=== PATIENT | female | born 1950 | race Caucasian/White ===

== ENCOUNTER 2019-09-13 07:26 | Day surgery (SDC) | payer MEDICARE, OTHER ==
[~2019-09-13] VITALS: Ht 167.6 cm; Wt 87.6 kg
[~2019-09-13 07:26] MED LIST: ABAC300; ALEN70; AMLO5 PO; AMLODIPINE 5 MG PO; ASPI81CH PO; ATEN100 PO; ATOR20 PO; ATOR40TA PO; BRILINTA90 MG PO; CEPH500 PO; CHANTIX STARTING MON; CLOP75 PO; D3-20002000 UNIT PO; EFFIENT10 MG PO; FAMO20; HYDACE5 PO; LAMO100 PO; LAMO25; LAMOTRIGINE 25 MG; LEVSOD112; LEVSOD137 PO; LISI20; LOSA25 PO; LOSA50 PO; LOSARTAN 50 MG; LOSARTAN POTAS100 MG PO; LOW DOSE ASPIRI81 MG PO; Lamictal150 MG PO; Lipitor20 MG PO; METO25ER PO; NITR.4SL SL; Nitrostat0.4 MG SL; Norvasc10 MG PO; OMEP20ER; OMEP20ER PO; OMEPRAZOLE20 MG PO; OXYACE5T PO; Omeprazole20 M1 PO; SULTRIDS PO; Synthroid137 MCG PO; TRAZ100 PO; Trazodone HCl300 MG PO; VARE1 PO; omeprazole 20 mg cap
== END 2019-09-13 09:40 | disposition home or self-care (01) ==
LOC: ORSCSDS 07:26
PROVIDERS: Internal Medicine Gastroenterology
PROC: 0DBL8ZX Excision of Transverse Colon, Via Natural or Artificial Opening Endoscopic, Diagnostic (ICD-10-PCS; principal; 2019-09-13 08:30)
DX: Z12.11 Encounter for screening for malignant neoplasm of colon (principal); Z86.010 Personal history of colon polyps; D12.3 Benign neoplasm of transverse colon; K64.1 Second degree hemorrhoids; I10 Essential (primary) hypertension; I25.10 Atherosclerotic heart disease of native coronary artery without angina pectoris; E03.9 Hypothyroidism, unspecified; Z87.891 Personal history of nicotine dependence; E78.5 Hyperlipidemia, unspecified; Z79.899 Other long term (current) drug therapy
CPT/HCPCS: 88305; J0330; J0461; J2405; J2704; J7120

== ENCOUNTER 2020-06-05 12:28 | Emergency (ER) | payer OTHER ==
[~2020-06-05] VITALS: Ht 167.6 cm; Wt 81.7 kg
[2020-06-05] MEDS ORDERED: FAMO20 PO (12:36)
[2020-06-05 14:17] LABS: BASOPHILS ABSOLUTE AUTO 0.03 K/mm3 (0.00-0.23); BASOPHILS PERCENT AUTO 1 % (0-2); EOSINOPHILS ABSOLUTE AUTO 0.09 K/mm3 (0.00-0.68); EOSINOPHILS PERCENT AUTO 2 % (0-6); Hematocrit 40.7 % (33.0-51.0); Hemoglobin 12.8 g/dL (11.5-16.0); IMMATURE GRAN ABSOLUTE AUTO 0.01 K/mm3 (0.00-0.10); IMMATURE GRAN PERCENT AUTO 0 % (0-1); LYMPHOCYTES ABSOLUTE AUTO 0.67 K/mm3 (0.84-5.20); LYMPHOCYTES PERCENT AUTO 17 % (21-46); MONOCYTES ABSOLUTE AUTO 0.32 K/mm3 (0.16-1.47); MONOCYTES PERCENT AUTO 8 % (4-13); Mean Corpuscular HGB 29.8 pg (26.0-34.0); Mean Corpuscular HGB Conc 31.4 g/dL (31.5-36.5); Mean Corpuscular Volume 95 fL (80-100); Mean Platelet Volume 9.6 fL (9.1-12.4); NEUTROPHILS ABSOLUTE AUTO 2.83 K/mm3 (1.96-9.15); NEUTROPHILS PERCENT AUTO 72 % (41-73); Platelet Count 208 K/mm3 (150-400); RDW Standard Deviation 44.7 fL (35.1-46.3); White Blood Cell Count 3.95 K/mm3 (4.00-11.30)
[2020-06-05 14:25] LABS: Alanine Aminotransfer (ALT/SGP 33 U/L (12-78); Albumin/Globulin Ratio 1.2 (0.8-1.8); Alk Phos 100 U/L (50-136); Anion Gap 5 mmol/L (6-16); Aspartate Aminotrans (AST/SGOT 17 U/L (12-37); Bilirubin, Total 0.4 mg/dL (0.1-1.0); Blood Urea Nitrogen 12 mg/dL (8-24); Bun/Creatinine Ratio 16.5 (12.0-20.0); CO2, Blood 27 mmol/L (21-32); Chloride, Blood 109 mmol/L (98-108); Creatinine, Blood 0.73 mg/dL (0.40-1.00); Globulin, Blood 3.3 g/dL (2.2-4.0); Glomerular Filtration Rate >60 (60-); Glucose, Blood 101 mg/dL (70-99); Potassium, Blood 3.9 mmol/L (3.5-5.5); Sodium, Blood 141 mmol/L (136-145); Total Protein, Blood 7.3 g/dL (6.4-8.2)
== END 2020-06-05 16:23 | disposition home or self-care (01) ==
LOC: ER 12:28
PROVIDERS: Emergency Medicine
DX: T42.6X1A Poisoning by other antiepileptic and sedative-hypnotic drugs, accidental (unintentional), initial encounter (principal); R42 Dizziness and giddiness; Z88.5 Allergy status to narcotic agent; Z79.899 Other long term (current) drug therapy; Z79.82 Long term (current) use of aspirin; I10 Essential (primary) hypertension; I25.2 Old myocardial infarction; Z87.891 Personal history of nicotine dependence
CPT/HCPCS: 36415; 80053; 80175; 85025; 93005; 93010; 99284-25

== ENCOUNTER 2020-07-24 09:35 | Day surgery (SDC) | payer OTHER ==
[~2020-07-24] VITALS: Ht 167.6 cm; Wt 85.7 kg
[~2020-07-24 09:35] MED LIST changes: +FAMO20 PO
== END 2020-07-24 13:20 | disposition home or self-care (01) ==
LOC: ORSCSDS 09:35
PROVIDERS: Podiatrist Foot & Ankle Surgery
PROC: 0QBQ0ZZ Excision of Right Toe Phalanx, Open Approach (ICD-10-PCS; principal; 2020-07-24 11:30)
DX: M13.871 Other specified arthritis, right ankle and foot (principal); E78.5 Hyperlipidemia, unspecified; I10 Essential (primary) hypertension; K21.9 Gastro-esophageal reflux disease without esophagitis; E66.01 Morbid (severe) obesity due to excess calories; Z68.30 Body mass index [BMI] 30.0-30.9, adult; Z79.82 Long term (current) use of aspirin; Z87.891 Personal history of nicotine dependence; Z79.899 Other long term (current) drug therapy; Z79.01 Long term (current) use of anticoagulants
CPT/HCPCS: J0171; J0690; J1100; J2250; J2405; J2704; J2765; J7120; U0003

== ENCOUNTER → 2020-12-21 | Outpatient (CLI) | payer OTHER | LOC: LAB SHORT 07:51 → PLD 07:51 | DX: D48.5 Neoplasm of uncertain behavior of skin (principal) | CPT/HCPCS: 88305 ==

== ENCOUNTER → 2020-12-22 | Outpatient (CLI) | payer OTHER | END | disposition home or self-care (01) | LOC: LAB SHORT 11:05 → LAB 11:05 | DX: D48.5 Neoplasm of uncertain behavior of skin (principal); L72.0 Epidermal cyst | CPT/HCPCS: 88304 ==

== ENCOUNTER 2021-07-30 09:43 | Day surgery (SDC) | payer OTHER | END 2021-07-30 23:32 | disposition home or self-care (01) | LOC: MOI US 09:43 | DX: D05.12 Intraductal carcinoma in situ of left breast (principal) | CPT/HCPCS: 19285; 77065; A4648 ==

== ENCOUNTER → 2021-09-23 | Outpatient (CLI) | payer OTHER | END | disposition home or self-care (01) | LOC: LAB SHORT 13:30 → LAB 13:30 | DX: T81.49XA Infection following a procedure, other surgical site, initial encounter (principal) | CPT/HCPCS: 87070; 87075; 87077; 87186; 87205 ==

== ENCOUNTER 2022-05-13 12:14 | Emergency (ER) | payer OTHER ==
[~2022-05-13] VITALS: Ht 167.6 cm; Wt 88.5 kg
[2022-05-13] MEDS ORDERED: VITAMIN D310 MC4 PO (13:55)
[2022-05-13] MEDS ORDERED: TAMO10 PO (13:55)
== END 2022-05-13 14:53 | disposition home or self-care (01) ==
LOC: ER 12:14
DX: M79.661 Pain in right lower leg (principal); M25.561 Pain in right knee; I10 Essential (primary) hypertension; G82.20 Paraplegia, unspecified; I25.2 Old myocardial infarction; Z79.899 Other long term (current) drug therapy; Z79.82 Long term (current) use of aspirin; Z88.5 Allergy status to narcotic agent; Z95.5 Presence of coronary angioplasty implant and graft; Z85.3 Personal history of malignant neoplasm of breast
CPT/HCPCS: 93971

== ENCOUNTER 2025-07-09 08:38 | Day surgery (SDC) | payer OTHER ==
[2025-07-09] VITALS (9 sets, daily range): BP systolic 123–150; BP diastolic 66–78
[~2025-07-09] VITALS: Ht 167.6 cm; Wt 81.1 kg
[~2025-07-09 08:38] MED LIST changes: +AMLO10 PO; +Ampicillin Sod/Sulbactam Sod 3 GM in NS 100 ML IV SCH; +CLOBETASOL PRO TOP; +FURO20 PO; +LEVSOD150 PO; +Nitrostat0.3 MG; -Synthroid137 MCG PO; +TAMO10 PO; +VITAMIN D310 MC4 PO; +WEGOVY1.7 MG/0.7 SC
[2025-07-09] MEDS ORDERED: Bupivacaine 0.5% HCl 5 MG/ML 30MLVIAL ONE (09:02)
--- NOTE | 2025-07-09 09:15 | NUR ---
Ambulatory in Day Surgery History, Chart, Medications and Allergies reviewed before start of procedure. Pre-Op teaching done. Pt verbalizes understanding. Patient States Post-Procedure ride home has been arranged.
[2025-07-09] MEDS ORDERED: Ondansetron HCl 2 MG / ML 2ML Vial ONE (09:25)
[2025-07-09] MEDS ORDERED: Dexamethasone Sod Phos 10 MG/ML 1ML VIAL ONE (09:25)
[2025-07-09] MEDS ORDERED: Ketorolac Tromethamine 30mg Vial ONE (09:25)
[2025-07-09] MEDS ORDERED: FentaNYL Citrate 50 MCG/ML 2 ML Injection ONE (09:25)
[2025-07-09] MEDS ORDERED: ePHEDrine Sulfate 50 MG/ML 1ML Injection ONE (09:47)
[2025-07-09] MEDS ORDERED: Phenylephrine HCl 100 MCG/ML-NS 10MLSYR (1MG/10ML) ONE (09:54)
[2025-07-09] MEDS ORDERED: HYDROmorphone HCl/Pf 1MG SYR IV PRN (10:05)
[2025-07-09] MEDS ORDERED: Ondansetron HCl 2 MG / ML 2ML Vial IV PRN (10:05)
[2025-07-09] MEDS ORDERED: Albuterol 2.5 MG/3 ML VIAL INH PRN (10:05)
[2025-07-09] MEDS ORDERED: FentaNYL Citrate 50 MCG/ML 2 ML Injection IV PRN (10:10)
[2025-07-09] MEDS ORDERED: HYDROcodone 5-APAP 325 TAB PO PRN (10:15)
--- NOTE | 2025-07-09 10:47 | NUR ---
PT INTO STEP. RESPONDS TO VOICE. SHAKES HER HEAD SLOWLY NOT TO PAIN, N/V. "NO" TO SOMETHING TO DRINK" WILL NOT OPEN HER EYES. AT BS.
--- NOTE | 2025-07-09 11:12 | NUR ---
Patient up to Ambulate independently. Gait steady.PT USES AN ASSISTIVE DEVICE TO STABILITY AFTER RECOVERING FROM NECK AND BACK FX. Discharge instructions reviewed with patient. Patient verbalizes understanding. Copy given to patient to take home. Discharged via wheelchair to private car for ride home.
== END 2025-07-09 11:12 | disposition home or self-care (01) ==
LOC: ORSCMMR 08:38 → ORD 09:30 → ORSCMMR 11:12
PROVIDERS: Surgery
PROC: 0HBU0ZX Excision of Left Breast, Open Approach, Diagnostic (ICD-10-PCS; principal; 2025-07-09 09:30)
DX: N64.1 Fat necrosis of breast (principal); Z86.000 Personal history of in-situ neoplasm of breast; I10 Essential (primary) hypertension; I25.10 Atherosclerotic heart disease of native coronary artery without angina pectoris; I50.9 Heart failure, unspecified; K21.9 Gastro-esophageal reflux disease without esophagitis; G82.20 Paraplegia, unspecified; Z79.899 Other long term (current) drug therapy; Z79.82 Long term (current) use of aspirin; I25.2 Old myocardial infarction; E78.5 Hyperlipidemia, unspecified; E03.9 Hypothyroidism, unspecified; Z87.891 Personal history of nicotine dependence
CPT/HCPCS: 88305; J0295; J1100; J1885; J2371; J2405; J2704; J3010; J7120